=== PATIENT | male | born 1960 | race African-American/Black ===

== ENCOUNTER 2019-06-01 08:33 | Emergency (ER) | payer MEDICARE, MEDICAID ==
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
== END 2019-06-01 09:42 | disposition home or self-care (01) ==
LOC: VM.ED 08:33
DX: S66.911A Strain of unspecified muscle, fascia and tendon at wrist and hand level, right hand, initial encounter (principal); X50.1XXA Overexertion from prolonged static or awkward postures, initial encounter; Y93.75 Activity, martial arts
CPT/HCPCS: 99283

== ENCOUNTER 2019-08-18 07:46 | Emergency (ER) | payer MEDICARE, MEDICAID ==
--- NOTE | 2019-08-18 09:27 | CR ---
[id number] RAD/RAD Wrist Right 3V Min Exam: RAD Wrist Right 3V Min Indication:PAIN AFTER PREVIOUS INJURY. Comparison: No prior imaging for comparison. Discussion: Scattered changes of osteoarthritis in the hand and wrist. No acute fracture or dislocation. No AVN or erosive changes. Impression: No acute findings. Mane Joseph MD 08/18/19 0926 Thank you for allowing us to participate in the care of your patient.
--- NOTE | 2019-08-18 09:29 | CR ---
[id number] RAD/RAD Lumbar Spine 2-3V Exam: RAD Lumbar Spine 2-3V Indication:BACK PAIN. Comparison: No prior imaging for comparison. Discussion: And spondylosis diffusely throughout the lumbar and lower thoracic spine. Degenerative disc disease at all levels with with intervertebral disc height loss. Findings are most prominent at L4-5 where there is near complete loss of intervertebral disc height and subchondral remodeling. No acute fracture or dislocation. Impression: Lumbar spondylosis. Mane Joseph MD 08/18/19 0928 Thank you for allowing us to participate in the care of your patient.
--- NOTE | 2019-08-18 09:55 | EDM.PDOC ---
ED HPI GENERAL MEDICAL PROBLEM - General Chief Complaint: Back Pain or Injury Stated Complaint: BACK SPASMS Time Seen by Provider: 08/18/19 08:03 Source of Information: Reports: Patient History Limitations: Reports: No Limitations - History of Present Illness INITIAL COMMENTS - FREE TEXT/NARRATIVE: Hx/o chronic low back pain and back spasms Increased over past several days Also complains of right wrist pain from previous chronic injury No new injuries to back or wrist Onset: Gradual Duration: Chronic Location: Reports: Back, Upper Extremity, Right Quality: Reports: Ache Severity: Moderate Worsens with: Reports: Movement Context: Reports: Trauma Lower Back Pain Score (Numeric/FACES): 9 - Related Data Allergies Allergy/AdvReac Type Severity Reaction Status Date / Time No Known Allergies Allergy Verified 08/18/19 08:07 Home Meds: Home Meds . [No Known Home Meds] 06/01/19 [History] Past Medical History - Past Health History Medical/Surgical History: Denies Medical/Surgical History Musculoskeletal History: Reports: Back Pain, Chronic, Other (See Below) Other Musculoskeletal History: R wrist fx - Past Surgical History HEENT Surgical History: Reports: Cataract Surgery Social & Family History - Tobacco Use Smoking Status *Q: Unknown Ever Smoked - Alcohol Use Days Per Week of Alcohol Use: 7 Number of Drinks Per Day: 8 Total Drinks Per Week: 56 - Recreational Drug Use Recreational Drug Use: No ED ROS GENERAL - Review of Systems Review Of Systems: See Below Musculoskeletal: Reports: Arm Pain, Back Pain ED EXAM,LOWER BACK PAIN/INJURY - Physical Exam Exam: See Below Exam Limited By: No Limitations Back Exam: Muscle Spasm, Other (Generalized diffuse pain) Extremities: Other (Wrist with generalized pain Degenerative changes) Course - Vital Signs Last Recorded V/S: Last Vital Signs Temp 35.5 C 08/18/19 07:47 Pulse 88 08/18/19 07:47 Resp 18 08/18/19 07:47 BP 144/87 H 08/18/19 07:47 Pulse Ox 98 08/18/19 07:47 - Radiology Interpretation Free Text/Narrative:: Per radiologist... No acute findings Degenerative changes through out Departure - Departure Time of Disposition: 10:00 Disposition: Home, Self-Care 01 Condition: Good Clinical Impression: DJD (degenerative joint disease) Qualifiers: Osteoarthritis location: wrist Osteoarthritis type: unspecified Laterality: right Qualified Code(s): M19.031 - Primary osteoarthritis, right wrist Back pain Qualifiers: Back pain location: low back pain Chronicity: chronic Back pain laterality: bilateral Sciatica presence: without sciatica Qualified Code(s): M54.5 - Low back pain; G89.29 - Other chronic pain - Discharge Information Instructions: Osteoarthritis Referrals: PCP,None [Primary Care Provider] - Additional Instructions: Follow up with usual provider Rx Norflex 100 mg BID prn Sepsis Event Note - Evaluation Sepsis Screening Result: No Definite Risk - Focused Exam Vital Signs: Vital Signs Temp Pulse Resp BP Pulse Ox 08/18/19 07:47 35.5 C 88 18 144/87 H 98 Date Exam was Performed: 08/18/19 Time Exam was Performed: 09:50
== END 2019-08-18 10:15 | disposition home or self-care (01) ==
LOC: VM.ED 07:46
DX: M54.5 Low back pain (principal); M19.031 Primary osteoarthritis, right wrist; G89.29 Other chronic pain
CPT/HCPCS: 72100; 73110-RT; 99283-25; 99283-GF